=== PATIENT | female | born 1980 | race Caucasian/White ===

== ENCOUNTER 2018-11-14 18:01 | Emergency (ER) | payer OTHER ==
[2018-11-14 19:12] LABS: Basophils % (A) 0 %; Eosinophils # (A) 0.2 k/uL (0-0.7); Eosinophils % (A) 4 %; HCT 42.2 % (34.0-46.0); HGB 13.5 gm/dL (11.4-16.0); Lymphocytes # (A) 2.7 k/uL (1.0-4.8); Lymphocytes % (A) 41 %; MCH 27.4 pg (25.0-35.0); MCV 85.5 fL (80.0-100.0); Mean Platelet Volume 7.9; Monocytes # (A) 0.3 k/uL (0-1.0); Monocytes % (A) 5 %; Neutrophils # (A) 3.2 k/uL (1.3-7.7); Neutrophils % (A) 48 %; Platelet Count 196 k/uL (150-450); RBC 4.93 m/uL (3.80-5.40); RDW 13.8 % (11.5-15.5); WBC 6.6 k/uL (3.8-10.6)
--- NOTE | 2018-11-14 19:18 | XR ---
EXAMINATION TYPE: XR chest 2V DATE OF EXAM: 11/14/2018 COMPARISON: NONE HISTORY: Chest pain TECHNIQUE: Frontal and lateral views of the chest are obtained. FINDINGS: Heart and mediastinum are normal. Lungs are clear. Diaphragm is normal. Bony thorax is int act. IMPRESSION: Normal chest
[2018-11-14 19:26] LABS: ALT 38 U/L (9-52); AST 29 U/L (14-36); Albumin 3.9 g/dL (3.5-5.0); Alkaline Phosphatase 32 U/L (38-126); Anion Gap 8 mmol/L; Blood Urea Nitrogen 16 mg/dL (7-17); Calcium 9.6 mg/dL (8.4-10.2); Carbon Dioxide 28 mmol/L (22-30); Chloride 105 mmol/L (98-107); Glucose 84 mg/dL (74-99); Magnesium 2.3 mg/dL (1.6-2.3); Potassium 4.6 mmol/L (3.5-5.1); Sodium 141 mmol/L (137-145); Total Bilirubin 0.3 mg/dL (0.2-1.3); Total Protein 7.1 g/dL (6.3-8.2)
[2018-11-14 19:32] LABS: Creatine Kinase 99 U/L (30-135)
[2018-11-14 19:39] LABS: D-Dimer 0.48 mg/L FEU (<0.60); INR 1.1 (<1.2); Prothrombin Time 11.2 sec (9.0-12.0)
--- NOTE | 2018-11-14 19:42 | ED ---
Chest Pain HPI - General Chief Complaint: Chest Pain Stated Complaint: Chest pain, High BP Time Seen by Provider: 11/14/18 18:12 Source: patient, RN notes reviewed Mode of arrival: ambulatory Limitations: no limitations - History of Present Illness Initial Comments: This is a 38-year-old female who presents with complaints of chest pain and elevated blood pressure started several hours ago. She states that her systolic diastolic blood pressures are both markedly elevated. She complains just not feeling well. No fevers chills nausea vomiting sweats cough phlegm production rhinorrhea abdominal pain or other symptoms reported she states she has a headache since had some blurry vision her pain was 5/10 in severity he points to left chest she also has some palpitations. States she's on Norvasc and Catapres for blood pressure. She states she has a headache history of CVA in the past. MD Complaint: chest pain - Related Data Home Medications Medication Instructions Recorded Confirmed Ergocalciferol [Vitamin D2] 50,000 unit PO [place] 11/14/18 11/14/18 Fluticasone Nasal [place] [Flonase 2 spr EA NOSTRIL DAILY 11/14/18 11/14/18 Nasal [place]] Ibuprofen [Motrin Ib] 600 mg PO TID PRN 11/14/18 11/14/18 Pregabalin [Lyrica] 100 mg PO QID 11/14/18 11/14/18 amLODIPine [Norvasc] 10 mg PO DAILY 11/14/18 11/14/18 Allergies Allergy/AdvReac Type Severity Reaction Status Date / Time Penicillins Allergy Rash/Hives Verified 11/14/18 18:54 Review of Systems ROS Statement: Those systems with pertinent positive or pertinent negative responses have been documented in the HPI. ROS Other: All systems not noted in ROS Statement are negative. EKG Findings - EKG Results: EKG: interpreted by ERMD, WNL, sinus rhythm, normal axis, normal QRS, normal ST/ T, no acute changes (Normal sinus rhythm of 74. Interval 134 QRS duration 90 QT since QTC 412/[address]-T wave changes) Past Medical History Past Medical History: Hypertension, Thyroid Disorder Additional Past Medical History / Comment(s): previous heroin use History of Any Multi-Drug Resistant Organisms: None Reported Past Surgical History: Back Surgery Additional Past Surgical History / Comment(s): uterine cyst removal, albert foot surgery, vaginal sling Past Psychological History: Depression, Panic Disorder, PTSD Smoking Status: Current every day smoker Past Alcohol Use History: None Reported Past Drug Use History: None Reported General Exam - General Exam Comments Initial Comments: Is a well-developed well-nourished awake alert oriented history female Limitations: no limitations General appearance: alert, in no apparent distress Head exam: Present: atraumatic, normocephalic, normal inspection Eye exam: Present: normal appearance, PERRL, EOMI. Absent: scleral icterus, conjunctival injection, periorbital swelling ENT exam: Present: normal exam, mucous membranes moist Neck exam: Present: normal inspection, full ROM, other (No stridor JVD or bruits ). Absent: tenderness, meningismus, lymphadenopathy Respiratory exam: Present: normal lung sounds bilaterally. Absent: respiratory distress, wheezes, rales, rhonchi, stridor Cardiovascular Exam: Present: regular rate, normal rhythm, normal heart sounds. Absent: systolic murmur, diastolic murmur, rubs, gallop, clicks GI/Abdominal exam: Present: soft, normal bowel sounds. Absent: distended, tenderness, guarding, rebound, rigid, bruit, pulsatile mass Extremities exam: Present: normal inspection, full ROM, normal capillary refill. Absent: tenderness, pedal edema, joint swelling, calf tenderness Back exam: Present: normal inspection Neurological exam: Present: alert, oriented X3, CN II-XII intact Psychiatric exam: Present: normal affect, normal mood Skin exam: Present: warm, dry, intact, normal color. Absent: rash Course Vital Signs 11/14/18 11/14/18 11/14/18 18:04 19:11 19:30 Temperature 98 F Pulse Rate 83 72 Respiratory 18 16 Rate Blood Pressure 121/79 142/96 O2 Sat by Pulse 98 98 98 Oximetry 11/14/18 20:00 Temperature Pulse Rate 70 Respiratory 16 Rate Blood Pressure 139/92 O2 Sat by Pulse 97 Oximetry Chest Pain MDM - MDM I did review the imaging and report no acute findings. Patient's examination thus far is negative. The pressure has normalized. No further discomfort the patient be discharged. Disposition Clinical Impression: Atypical chest pain, Hypertension Disposition: HOME SELF-CARE Condition: Good Instructions (If sedation given, give patient instructions): Chest Pain (ED), Hypertension (ED) Is patient prescribed a controlled substance at d/c from ED?: No Referrals: Nonstaff,Physician [Primary Care Provider] - 1-2 days
[2018-11-14 19:43] LABS: Partial Thromboplastin Time 19.9 sec (22.0-30.0)
[2018-11-14 19:45] LABS: Creatine Kinase MB 0.7 ng/mL (0.0-2.4); Troponin I <0.012 ng/mL (0.000-0.034)
[2018-11-14 20:05] VITALS: RESP 16
[2018-11-14 21:06] VITALS: BP 138/87; PULSE 69; TEMP 97.9
== END 2018-11-14 21:06 | disposition home or self-care (01) ==
LOC: EC 18:01
DX: I10 Essential (primary) hypertension (principal); R07.89 Other chest pain; R51 Headache; H53.8 Other visual disturbances; R00.2 Palpitations; F17.200 Nicotine dependence, unspecified, uncomplicated; Z88.0 Allergy status to penicillin; Z79.51 Long term (current) use of inhaled steroids; Z79.899 Other long term (current) drug therapy; Z86.73 Personal history of transient ischemic attack (TIA), and cerebral infarction without residual deficits
CPT/HCPCS: 36415; 71046; 80053; 82550; 82553; 83735; 83880; 84443; 84484; 85025; 85379; 85610; 85730; 93005; 99285